=== PATIENT | female | born 1985 | race Caucasian/White ===

== ENCOUNTER 2017-05-14 19:35 | Emergency (ER) | payer SELFPAY ==
[~2017-05-14] VITALS: Ht 152.4 cm; Wt 50.0 kg
[~2017-05-14 19:35] MED LIST: CLIN300C5 PO; HYDR-3533 PO; NAPR500 PO
[2017-05-14 19:37] VITALS: BP 95/66; PULSE 73; RESP 16; TEMP 98.2; O2SAT 99
== END 2017-05-14 22:31 | disposition left against medical advice (07) ==
LOC: NED 19:35
DX: M79.673 Pain in unspecified foot (principal); Z53.21 Procedure and treatment not carried out due to patient leaving prior to being seen by health care provider
CPT/HCPCS: 99281

== ENCOUNTER 2017-05-26 08:33 | Emergency (ER) | payer SELFPAY ==
[~2017-05-26] VITALS: Ht 152.4 cm; Wt 55.0 kg
[2017-05-26 08:35] VITALS: BP 98/63; PULSE 84; RESP 16; TEMP 98.2; O2SAT 98
[2017-05-26] MEDS ORDERED: LAMI250T PO (09:17)
--- NOTE | 2017-05-26 09:29 | PD ---
HPI . Caitie pedis Chief Complaint: Skin Problem Time Seen by Provider: 09:06 Travel History International Travel<30 days: No Contact w/Intl Traveler<30days: No Traveled to known affect area: No History of Present Illness HPI 32-year-old female presents emergency department for evaluation of itchy, raw feet 3 weeks. 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 She states she had used some topical [id number] treatment but she was unable to afford new shoes so she kept recontaminating her feet. She denies any major medical history. Patient doesn't take any daily medication. She denies any drug or alcohol use. Patient denies any fever, chills, malaise, nausea, vomiting, diarrhea, lightheadedness. PFSH Past Medical History Asthma: No Autoimmune Disease: No Blood Disorders: No Bipolar Disorder: Yes Anxiety: Yes Depression: Yes Cancer: No Cardiovascular Problems: No Chemotherapy: No Chest Pain: No Congestive Heart Failure: No COPD: No Cerebrovascular Accident: No Diabetes: No Diminished Hearing: No Endocrine: No Gastrointestinal Disorders: No Genitourinary: Yes Hepatitis: No Hypertension: No Immune Disorder: No Kidney Stones: No Musculoskeletal: No Neurologic: No Psychiatric: Yes Reproductive: No Respiratory: No Immunizations Current: Yes Migraines: No Myocardial Infarction: No Radiation Therapy: No Schizophrenia: Yes Seizures: No Sickle Cell Disease: No Thyroid Disease: No Ulcer: No ?: Not LMP: 05/20/17 : 3 Para: 2 Ectopic : Yes (IN THE FALL 2012) Ovarian Cysts: Yes (2011) Tubal Ligation: Yes Past Surgical History Abdominal Surgery: No AICD: No Appendectomy: No Arteriovenous Shunt: No Cardiac Surgery: No Cholecystectomy: No Endocrine Surgery: No Eye Surgery: No Genitourinary Surgery: No Gynecologic Surgery: Yes (CYSTS ON OVARIES REMOVED ..TUBAL LIGATION) Pacemaker: No Other Surgery: Yes (GROIN CYST REMOVED; D&C) Social History Alcohol Use: No Tobacco Use: Yes (1 ppd) Substance Use: No Allergies-Medications (Allergen,Severity, Reaction): Coded Allergies: codeine (Unverified Allergy, Severe, Hives, 02/14/17) nitrofurantoin (Unverified Allergy, Severe, HIVES, 02/14/17) sulfamethoxazole (Unverified Allergy, Severe, HIVES, 02/14/17) trimethoprim (Unverified Allergy, Severe, HIVES, 02/14/17) ziprasidone (Unverified Allergy, Severe, HIVES, 02/14/17) Reported Meds & Prescriptions Reported Meds & Active Scripts Active Clindamycin (Clindamycin HCl) 300 Mg Cap 300 Mg PO Q6H 10 Days Naprosyn (Naproxen) 500 Mg Tab 500 Mg PO BID PRN Lortab (Hydrocodone-Acetaminophen) 5-325 Mg Tab 1-2 Tab PO Q6H PRN Review of Systems Except as stated in HPI: all other systems reviewed are Neg Physical Exam Narrative GENERAL: Well-nourished, well-developed 32-year-old female patient in no acute distress. [id number]. SKIN: Mildly erythematous between the toes of the feet. HEAD: Normocephalic. Atraumatic. EYES: No scleral icterus. No injection or drainage. NECK: Supple, trachea midline. No JVD or lymphadenopathy. CARDIOVASCULAR: Regular rate and rhythm without murmurs, gallops, or rubs. RESPIRATORY: Breath sounds equal bilaterally. No accessory muscle use. GASTROINTESTINAL: Abdomen soft, non-tender, nondistended. MUSCULOSKELETAL: No cyanosis, or edema. Data Data Last Documented VS Vital Signs Date Time Temp Pulse Resp B/P (MAP) Pulse Ox O2 Delivery O2 Flow Rate FiO2 05/26/17 08:35 98.2 84 16 98/63 (75) 98 MDM Medical Decision Making Medical Screen Exam Complete: Yes Emergency Medical Condition: Yes Differential Diagnosis Differential diagnoses include but not limited to Caitie pedis, cellulitis, dermatitis Narrative Course 32-year-old female patient presents emergency department for evaluation of itchy and irritated 3 weeks. Patient's physical exam is consistent with tinea pedis. Patient denies any drug or alcohol use. Patient discharged home with prescription for Lamisil. Patient instructed to use caution to not recontaminate feet, return the emergency Department with any worsening condition but otherwise follow up with the primary care. Diagnosis Primary Impression: Athlete's foot Qualified Codes: B35.3 - Tinea pedis Referrals: Primary Care Physician Patient Instructions: Athlete's Foot (ED), General Instructions Additional Instructions: Please return to emergency department if your symptoms return or worsen. Follow up with your primary care provider. Take medications as prescribed. Keep feet clean and dry Use precaution to not recontaminate feet. Wash shoes in hot water or purchase new ones. Wash shower. Med/Other Pt SpecificInfo: Prescription(s) given Scripts Terbinafine (Lamisil) 250 Mg Tab 250 MG PO DAILY for Manage Fungal Infection for 42 Days, #42 TAB 0 Refills Prov: Tracey Constantino 05/26/17 Disposition: 01 DISCHARGE HOME Condition: Stable Tracey Constantino May 26, 2017 09:29
== END 2017-05-26 09:35 | disposition home or self-care (01) ==
LOC: NEPD 08:33
DX: B35.3 Tinea pedis (principal); F31.9 Bipolar disorder, unspecified; F41.9 Anxiety disorder, unspecified; F20.9 Schizophrenia, unspecified; F17.200 Nicotine dependence, unspecified, uncomplicated; Z79.899 Other long term (current) drug therapy
CPT/HCPCS: 99282

== ENCOUNTER 2017-06-07 07:22 | Emergency (ER) | payer SELFPAY ==
[~2017-06-07] VITALS: Ht 152.4 cm; Wt 50.0 kg
[~2017-06-07 07:22] MED LIST changes: +LAMI250T PO
[2017-06-07 07:24] VITALS: BP 135/85; PULSE 102; RESP 26; TEMP 98.8; O2SAT 94
[2017-06-07] MEDS ORDERED: SODIUM CHLORIDE 0.9% FLUSH 10 ML FLUSH IVF PRN (07:45)
[2017-06-07] MEDS ORDERED: methylPREDNISolone SOD SUCC 125 MG/2 ML VIAL IV PUSH ONE (07:45)
--- NOTE | 2017-06-07 07:46 | PD ---
HPI Chief Complaint: Chest Pain Time Seen by Provider: 07:42 Travel History International Travel<30 days: No Contact w/Intl Traveler<30days: No Traveled to known affect area: No History of Present Illness HPI 32-year-old female patient with history of smoking, bronchitis, presents to the ER today because of 2 weeks history of cough, cold symptoms, shortness of breath worsening last night. She states that she is now having shooting pains in the right lower chest area. She states she has been having subjective fevers. She denies any vomiting, diarrhea, or other symptoms. Modifying Factors: None Associated Signs & Symptoms: Coughing, shortness of breath, right sided chest pains Risk Factors: Smoking PFSH Past Medical History Asthma: No Autoimmune Disease: No Blood Disorders: No Bipolar Disorder: Yes Anxiety: Yes Depression: Yes Cancer: No Cardiovascular Problems: No Chemotherapy: No Chest Pain: No Congestive Heart Failure: No COPD: No Cerebrovascular Accident: No Diabetes: No Diminished Hearing: No Endocrine: No Gastrointestinal Disorders: No Genitourinary: Yes Hepatitis: No Hypertension: No Immune Disorder: No Kidney Stones: No Musculoskeletal: No Neurologic: No Psychiatric: Yes Reproductive: No Respiratory: No Immunizations Current: Yes Migraines: No Myocardial Infarction: No Radiation Therapy: No Schizophrenia: Yes Seizures: No Sickle Cell Disease: No Thyroid Disease: No Ulcer: No ?: Not : 3 Para: 2 Ectopic : Yes (IN THE FALL 2012) Ovarian Cysts: Yes (2011) Tubal Ligation: Yes Past Surgical History Abdominal Surgery: No AICD: No Appendectomy: No Arteriovenous Shunt: No Cardiac Surgery: No Cholecystectomy: No Endocrine Surgery: No Eye Surgery: No Genitourinary Surgery: No Gynecologic Surgery: Yes (CYSTS ON OVARIES REMOVED ..TUBAL LIGATION) Pacemaker: No Other Surgery: Yes (GROIN CYST REMOVED; D&C) Social History Alcohol Use: No Tobacco Use: Yes (1 ppd) Substance Use: No Allergies-Medications (Allergen,Severity, Reaction): Coded Allergies: codeine (Unverified Allergy, Severe, Hives, 06/07/17) nitrofurantoin (Unverified Allergy, Severe, HIVES, 06/07/17) sulfamethoxazole (Unverified Allergy, Severe, HIVES, 06/07/17) trimethoprim (Unverified Allergy, Severe, HIVES, 06/07/17) ziprasidone (Unverified Allergy, Severe, HIVES, 06/07/17) Reported Meds & Prescriptions Reported Meds & Active Scripts Active Lamisil (Terbinafine) 250 Mg Tab 250 Mg PO DAILY 42 Days Review of Systems Except as stated in HPI: all other systems reviewed are Neg Physical Exam Narrative GENERAL: Well-developed young female patient currently mild distress. Awake and oriented 3. SKIN: Focused skin assessment warm/dry. HEAD: Atraumatic. Normocephalic. EYES: Pupils equal and round. No scleral icterus. No injection or drainage. ENT: No nasal bleeding or discharge. Mucous membranes pink and moist. NECK: Trachea midline. No JVD. CARDIOVASCULAR: Regular rate and rhythm. No murmur appreciated. RESPIRATORY: Mild accessory muscle use. Intermittent wheezing throughout. Breath sounds equal bilaterally. GASTROINTESTINAL: Abdomen soft, non-tender, nondistended. Hepatic and splenic margins not palpable. MUSCULOSKELETAL: No obvious deformities. No clubbing. No cyanosis. No edema. NEUROLOGICAL: Awake and alert. No obvious cranial nerve deficits. Motor grossly within normal limits. Normal speech. PSYCHIATRIC: Appropriate mood and affect; insight and judgment normal. Data Data Last Documented VS Vital Signs Date Time Temp Pulse Resp B/P (MAP) Pulse Ox O2 Delivery O2 Flow Rate FiO2 06/07/17 07:54 77 98 Room Air 06/07/17 07:24 98.8 26 Orders Orders Electrocardiogram (06/07/17 07:31) Iv Access Insert/Monitor (06/07/17 07:42) Ecg Monitoring (06/07/17 07:42) Oximetry (06/07/17 07:42) Oxygen Administration (06/07/17 07:42) Chest, Single Ap (06/07/17 07:42) Sodium Chloride 0.9% Flush (Ns Flush) (06/07/17 07:45) Methylprednisolone So Succ Inj (Solumedr (06/07/17 07:45) Albuterol-Ipratropium Neb (Duoneb Neb) (06/07/17 07:45) Azithromycin Inj (Zithromax Inj) (06/07/17 08:30) Blood Culture (06/07/17 08:22) Complete Blood Count With Diff (06/07/17 08:22) Basic Metabolic Panel (Bmp) (06/07/17 08:22) Ondansetron Inj (Zofran Inj) (06/07/17 09:10) Ed Discharge Order (06/07/17 09:24) Labs Laboratory Tests Test 06/07/17 08:35 White Blood Count 15.0 TH/MM3 Red Blood Count 4.64 MIL/MM3 Hemoglobin 14.8 GM/DL Hematocrit 43.5 % Mean Corpuscular Volume 93.8 FL Mean Corpuscular Hemoglobin 31.9 PG Mean Corpuscular Hemoglobin Concent 34.0 % Red Cell Distribution Width 13.5 % Platelet Count 202 TH/MM3 Mean Platelet Volume 9.9 FL Neutrophils (%) (Auto) 75.9 % Lymphocytes (%) (Auto) 15.9 % Monocytes (%) (Auto) 7.1 % Eosinophils (%) (Auto) 0.6 % Basophils (%) (Auto) 0.5 % Neutrophils # (Auto) 11.4 TH/MM3 Lymphocytes # (Auto) 2.4 TH/MM3 Monocytes # (Auto) 1.1 TH/MM3 Eosinophils # (Auto) 0.1 TH/MM3 Basophils # (Auto) 0.1 TH/MM3 CBC Comment DIFF FINAL Differential Comment Blood Urea Nitrogen 5 MG/DL Creatinine 0.78 MG/DL Random Glucose 99 MG/DL Calcium Level 8.9 MG/DL Sodium Level 137 MEQ/L Potassium Level 3.7 MEQ/L Chloride Level 103 MEQ/L Carbon Dioxide Level 27.3 MEQ/L Anion Gap 7 MEQ/L Estimat Glomerular Filtration Rate 86 ML/MIN MDM Medical Decision Making Medical Screen Exam Complete: Yes Emergency Medical Condition: Yes Medical Record Reviewed: Yes Interpretation(s) EKG shows NSR, no ST elevation or depression, and no arrhythmias. No significant T-wave inversions. Last 24 hours Impressions Chest X-Ray 06/07/17 0742 Signed Impressions: Service Date/Time: Wednesday, June 07, 2017 08:00 - CONCLUSION: 1. Ill-defined right lower lung zone parenchymal opacity concerning for developing pneumonia given history of cough.. Puma Cervantes MD Laboratory Tests Test 06/07/17 08:35 White Blood Count 15.0 TH/MM3 (4.0-11.0) Neutrophils (%) (Auto) 75.9 % (16.0-70.0) Neutrophils # (Auto) 11.4 TH/MM3 (1.8-7.7) Monocytes # (Auto) 1.1 TH/MM3 (0-0.9) Blood Urea Nitrogen 5 MG/DL (7-18) Estimat Glomerular Filtration Rate 86 ML/MIN (>89) Differential Diagnosis Cough, shortness of breath, chest discomfort: Bronchitis versus asthma exacerbation versus pneumonia Narrative Course Right sided developing pneumonia seen on chest x-ray. Patient was given Solu- Medrol and nebulizers in the ER with improvement symptoms and oxygenation. Zithromax was given in the ER after blood cultures were drawn. At this point, my plan would be to release the patient with treatment for pneumonia. Follow- up with primary care physician. Return for any worsening in symptoms as needed. The plan has discussed with her and she states understanding. Diagnosis Primary Impression: Pneumonia Med/Other Pt SpecificInfo: Prescription(s) given Scripts Albuterol 6.7 GM Inh (Proventil Hfa 6.7 GM Inh) 90 Mcg/Act Aer 2 PUFF INH Q4-6H Y for SHORTNESS OF BREATH, #1 INHALER 0 Refills Prov: Roger Landry MD 06/07/17 Prednisone (Prednisone) 50 Mg Tab 50 MG PO DAILY for 3 Days, #3 TAB 0 Refills Prov: Roger Landry MD 06/07/17 Azithromycin (Zithromax Z-Magdi) 250 Mg Dspk 250 MG PO DIRECTED for Infection, #1 DSPK 0 Refills 500 MG (2 tabs) day 1, then 1 tab days 2-5. Prov: Roger Landry MD 06/07/17 Disposition: 01 DISCHARGE HOME Condition: Stable Roger Landry MD Jun 07, 2017 07:46
[2017-06-07 07:54] VITALS: PULSE 77; O2SAT 98
[2017-06-07] MEDS: RESP: ALBUTEROL 2.5 MG/IPRATROPIUM 0.5 MG NEB (SCH) INH ×2 (08:04→08:05)
--- NOTE | 2017-06-07 08:12 | RADRPT ---
EXAM DATE/TIME: 06/07/2017 08:00 [facility] COMPARISON: CHEST SINGLE AP, April 04, 2014, 14:39. INDICATIONS : Cough. MEDICAL HISTORY : None. SURGICAL HISTORY : None. ENCOUNTER: Initial ACUITY: 3 weeks PAIN SCORE: 0/10 LOCATION: Bilateral chest FINDINGS: Ill-defined parenchymal opacity in the right lower lung zone. Cardiomediastinal contours are within n ormal limits. Bony thorax is intact. CONCLUSION: 1. Ill-defined right lower lung zone parenchymal opacity concerning for developing pneumonia given hi story of cough.. Puma Cervantes MD on June 07, 2017 at 8:09 Board Certified Radiologist. This report was verified electronically.
[2017-06-07] MEDS ORDERED: AZITHROMYCIN INJ 500 MG in SODIUM CHLOR 0.9% 250 ML INJ 250 ML IV ONE (08:30)
[2017-06-07 09:08] LABS: AUTOMATED NEUTROPHIL # 11.4 TH/MM3 (1.8-7.7); BASOPHIL # 0.1 TH/MM3 (0-0.2); BASOPHIL % 0.5 % (0.0-2.0); EOSINOPHIL # 0.1 TH/MM3 (0-0.4); EOSINOPHIL % 0.6 % (0.0-4.0); HEMATOCRIT 43.5 % (35.0-46.0); HEMO FLAGS DIFF FINAL; LYMPH % 15.9 % (9.0-44.0); LYMPHOCYTE # 2.4 TH/MM3 (1.0-4.8); MEAN CELL VOLUME 93.8 FL (80.0-100.0); MEAN CORPUSCULAR HEMOGLOBIN 31.9 PG (27.0-34.0); MONO % 7.1 % (0.0-8.0); NEUT % 75.9 % (16.0-70.0); PLATELET COUNT 202 TH/MM3 (150-450); RED BLOOD COUNT 4.64 MIL/MM3 (4.00-5.30); RED CELL DISTRIBUTION WIDTH 13.5 % (11.6-17.2)
[2017-06-07] MEDS ORDERED: ONDANSETRON HCL 4 MG/2 ML VIAL ONE (09:10)
[2017-06-07 09:21] LABS: BICARBONATE 27.3 MEQ/L (21.0-32.0); POTASSIUM 3.7 MEQ/L (3.5-5.1)
[2017-06-07] MEDS ORDERED: ALBU6.7H INH (09:26)
[2017-06-07] MEDS ORDERED: PRED50 PO (09:26)
[2017-06-07] MEDS ORDERED: ZITHTAB PO (09:26)
[2017-06-07] MEDS ORDERED: ONDANSETRON HCL 4 MG/2 ML VIAL IV PUSH ONE (09:30)
--- NOTE | 2017-06-08 10:33 | EKG ---
Date Performed: 06/07/2017 Time Performed: 07:37:51 PTAGE: 32 years EKG: Sinus rhythm NORMAL ECG PREVIOUS TRACING : 04/04/2014 13.15 Compared to prior tracing no significant change DOCTOR: Yamilex Mclaughlin Interpretating Date/Time 06/08/2017 10:32:26
== END 2017-06-07 11:09 | disposition home or self-care (01) ==
LOC: NEPE 07:22
DX: J18.9 Pneumonia, unspecified organism (principal); F17.200 Nicotine dependence, unspecified, uncomplicated; R06.02 Shortness of breath
CPT/HCPCS: 71010; 80048; 85025; 87040; 93005; 94640; 94664; 96361; 96374; 96375; 99285; J0456; J2405; J2930; J7050

== ENCOUNTER 2017-07-31 21:17 | Emergency (ER) | payer SELFPAY ==
[~2017-07-31] VITALS: Ht 152.4 cm; Wt 50.0 kg
[~2017-07-31 21:17] MED LIST changes: +ALBU6.7H INH; -CLIN300C5 PO; -HYDR-3533 PO; -NAPR500 PO; +PRED50 PO; +ZITHTAB PO
[2017-07-31 21:18] VITALS: BP 119/77; PULSE 100; RESP 16; TEMP 98.4; O2SAT 100
--- NOTE | 2017-07-31 22:09 | PD ---
Physical Exam Date Seen by Provider: Jul 31, 2017 Time Seen by Provider: 21:32 Narrative 32-year-old female presents to the emergency department for evaluation of sore throat, left ear pain that started yesterday. Current pain is 6/10. Data Data Last Documented VS Vital Signs Date Time Temp Pulse Resp B/P (MAP) Pulse Ox O2 Delivery O2 Flow Rate FiO2 07/31/17 21:18 98.4 100 16 119/77 (91) [address] [facility] Supervised Visit with KIYA: No Narrative Course 32-year-old female presents to the emergency department for evaluation of sore throat left ear pain that started yesterday. Patient is initially seen in triage. She left AGAINST MEDICAL ADVICE before should be placed in a medical bed. Diagnosis Primary Impression: Left against medical advice Disposition: 07 AGAINST MEDICAL ADVICE Bing Willoughby Jul 31, 2017 22:09
== END 2017-07-31 21:32 | disposition left against medical advice (07) ==
LOC: NED 21:17
DX: J02.9 Acute pharyngitis, unspecified (principal); Z53.21 Procedure and treatment not carried out due to patient leaving prior to being seen by health care provider
CPT/HCPCS: 99281

== ENCOUNTER 2017-08-01 06:02 | Inpatient (IN) | payer SELFPAY ==
[~2017-08-01] VITALS: Ht 157.5 cm; Wt 50.0 kg
[2017-08-01 06:03] VITALS: BP 110/65; PULSE 95; RESP 16; TEMP 98.6; O2SAT 95
[2017-08-01] MEDS ORDERED: IOHEXOL 350 MG/ML 10 ML VIAL (for RAD DIAG) IVCONTRAST ONE (06:03)
[2017-08-01] MEDS ORDERED: ONDANSETRON HCL 4 MG/2 ML VIAL IV PUSH ONE (07:15)
[2017-08-01] MEDS ORDERED: SODIUM CHLOR 0.9% 1000 ML INJ 1,000 ML IV ONE (07:15)
[2017-08-01] MEDS ORDERED: DEXAMETHASONE SOD PHOS 20 MG/5 ML VIAL IV PUSH ONE (07:15)
[2017-08-01] MEDS ORDERED: KETOROLAC TROMETHAMINE 30 MG/ML (IVP) VIAL IV PUSH ONE (07:15)
--- NOTE | 2017-08-01 07:16 | PD ---
HPI Chief Complaint: ENT Complaint Time Seen by Provider: 07:03 Travel History International Travel<30 days: No Contact w/Intl Traveler<30days: No Traveled to known affect area: No History of Present Illness HPI Patient is a 32-year-old female who comes in complaining of sore throat, vomiting, cough for 2 days. She reports feeling feverish, but has not taken her temperature. She has tried taking DayQuil without relief of her symptoms. She denies abdominal pain. She denies any diarrhea. She denies shortness of breath. She has a lot of pain with swallowing, but is able to swallow. She says the pain goes from her throat up to her left ear. PFSH Past Medical History Asthma: No Autoimmune Disease: No Blood Disorders: No Bipolar Disorder: Yes Anxiety: Yes Depression: Yes Cancer: No Cardiovascular Problems: No Chemotherapy: No Chest Pain: No Congestive Heart Failure: No COPD: No Cerebrovascular Accident: No Diabetes: No Diminished Hearing: No Endocrine: No Gastrointestinal Disorders: No Genitourinary: Yes Hepatitis: No Hypertension: No Immune Disorder: No Kidney Stones: No Musculoskeletal: No Neurologic: No Psychiatric: Yes Reproductive: No Respiratory: No Immunizations Current: Yes Migraines: No Myocardial Infarction: No Radiation Therapy: No Schizophrenia: Yes Seizures: No Sickle Cell Disease: No Thyroid Disease: No Ulcer: No Tetanus Vaccination: Unknown Influenza Vaccination: No ?: Not : 3 Para: 2 Ectopic : Yes (IN THE FALL 2012) Ovarian Cysts: Yes (2011) Tubal Ligation: Yes Past Surgical History Abdominal Surgery: No AICD: No Appendectomy: No Arteriovenous Shunt: No Cardiac Surgery: No Cholecystectomy: No Endocrine Surgery: No Eye Surgery: No Genitourinary Surgery: No Gynecologic Surgery: Yes (CYSTS ON OVARIES REMOVED ..TUBAL LIGATION) Pacemaker: No Other Surgery: Yes (GROIN CYST REMOVED; D&C) Social History Alcohol Use: No Tobacco Use: Yes (1 ppd) Substance Use: No Allergies-Medications (Allergen,Severity, Reaction): Coded Allergies: codeine (Unverified Allergy, Severe, Hives, 08/01/17) nitrofurantoin (Unverified Allergy, Severe, HIVES, 08/01/17) sulfamethoxazole (Unverified Allergy, Severe, HIVES, 08/01/17) trimethoprim (Unverified Allergy, Severe, HIVES, 08/01/17) ziprasidone (Unverified Allergy, Severe, HIVES, 08/01/17) Reported Meds & Prescriptions Reported Meds & Active Scripts Active No Active Prescriptions or Reported Medications Review of Systems Except as stated in HPI: all other systems reviewed are Neg General / Constitutional: Positive: Fever HENT: Positive: Sore Throat, No: Headaches Cardiovascular: No: Chest Pain or Discomfort Respiratory: Positive: Cough, No: Shortness of Breath Gastrointestinal: Positive: Nausea, Vomiting, No: Abdominal Pain Musculoskeletal: No: Myalgias, Edema Skin: No Rash, No Change in Pigmentation Neurologic: No: Weakness, Dizziness Physical Exam Narrative GENERAL: Awake and alert, in no acute distress. SKIN: Focused skin assessment warm/dry. HEAD: Atraumatic. Normocephalic. EYES: Pupils equal and round. No scleral icterus. ENT: Mucous membranes pink and moist. Enlarged left tonsil, swelling concerning for peritonsillar abscess. NECK: Trachea midline. No JVD. CARDIOVASCULAR: Regular rate and rhythm. No murmur appreciated. RESPIRATORY: No accessory muscle use. Clear to auscultation. Breath sounds equal bilaterally. GASTROINTESTINAL: Abdomen soft, non-tender, nondistended. MUSCULOSKELETAL: No obvious deformities. No clubbing. No cyanosis. No edema. NEUROLOGICAL: Awake and alert. No obvious cranial nerve deficits. Motor grossly within normal limits. Normal speech. PSYCHIATRIC: Appropriate mood and affect; insight and judgment normal. Data Data Last Documented VS Vital Signs Date Time Temp Pulse Resp B/P (MAP) Pulse Ox O2 Delivery O2 Flow Rate FiO2 08/01/17 06:03 98.6 95 16 110/65 (80) 95 Orders Orders Iv Access Insert/Monitor (08/01/17 07:09) Complete Blood Count With Diff (08/01/17 07:09) Comprehensive Metabolic Panel (08/01/17 07:09) Ct Soft Tiss Neck W Iv Cont (08/01/17 ) Sodium Chlor 0.9% 1000 Ml Inj (Ns 1000 M (08/01/17 07:15) Ketorolac Inj (Toradol Inj) (08/01/17 07:15) Dexamethasone Inj (Decadron Inj) (08/01/17 07:15) Ondansetron Inj (Zofran Inj) (08/01/17 07:15) Iohexol 350 Inj (Omnipaque 350 Inj) (08/01/17 06:03) Clindamycin 600 Mg/Ns Premix (Cleocin 60 (08/01/17 08:30) Labs Laboratory Tests Test 08/01/17 07:37 White Blood Count 20.1 TH/MM3 Red Blood Count 4.42 MIL/MM3 Hemoglobin 14.2 GM/DL Hematocrit 40.5 % Mean Corpuscular Volume 91.7 FL Mean Corpuscular Hemoglobin 32.2 PG Mean Corpuscular Hemoglobin Concent 35.1 % Red Cell Distribution Width 13.7 % Platelet Count 177 TH/MM3 Mean Platelet Volume 9.1 FL Neutrophils (%) (Auto) 86.7 % Lymphocytes (%) (Auto) 7.4 % Monocytes (%) (Auto) 5.5 % Eosinophils (%) (Auto) 0.1 % Basophils (%) (Auto) 0.3 % Neutrophils # (Auto) 17.4 TH/MM3 Lymphocytes # (Auto) 1.5 TH/MM3 Monocytes # (Auto) 1.1 TH/MM3 Eosinophils # (Auto) 0.0 TH/MM3 Basophils # (Auto) 0.1 TH/MM3 CBC Comment DIFF FINAL Differential Comment Blood Urea Nitrogen 7 MG/DL Creatinine 0.73 MG/DL Random Glucose 105 MG/DL Total Protein 8.1 GM/DL Albumin 4.0 GM/DL Calcium Level 8.9 MG/DL Alkaline Phosphatase 82 U/L Aspartate Amino Transf (AST/SGOT) 14 U/L Alanine Aminotransferase (ALT/SGPT) 13 U/L Total Bilirubin 1.1 MG/DL Sodium Level 137 MEQ/L Potassium Level 3.4 MEQ/L Chloride Level 104 MEQ/L Carbon Dioxide Level 27.2 MEQ/L Anion Gap 6 MEQ/L Estimat Glomerular Filtration Rate 93 ML/MIN [facility] Medical Decision Making Medical Screen Exam Complete: Yes Emergency Medical Condition: Yes Medical Record Reviewed: Yes Differential Diagnosis strep pharyngitis vs peritonsillar abscess vs viral illness Narrative Course Patient is a 32 year old female who comes in complaining of sore throat, fever, nausea and vomiting. Exam concerning for tonsillar abscess. IV established, labs sent. Labs show an elevated WBC count to 20. CT neck performed shows evidence of 3 abscesses. Last [address] 08/01/17 0000 Signed Impressions: Service Date/Time: Tuesday, August 01, 2017 07:42 - CONCLUSION: Left tonsillar rim-enhancing mass with low density consistent with abscess in the proper clinical setting. There are additional similar but smaller submucosal masses more inferiorly at the level of the vallecula and piriform sinus. No retropharyngeal abscess demonstrated. There is left cervical lymphadenopathy, presumably reactive. Ronald Dickey MD Given IVF, Toradol, Decadron. Given a dose of Clindamycin. I spoke with the nurse from Dr. Naylor's office who says he will see her in consultation after admission. Diagnosis Primary Impression: Tonsillar abscess Admitting Information Admitting Physician Requests: Admit Scripts No Active Prescriptions or Reported Meds Tracey Hutchins MD Aug 01, 2017 07:16
[2017-08-01 07:51] LABS: AUTOMATED NEUTROPHIL # 17.4 TH/MM3 (1.8-7.7); BASOPHIL # 0.1 TH/MM3 (0-0.2); BASOPHIL % 0.3 % (0.0-2.0); EOSINOPHIL % 0.1 % (0.0-4.0); HEMATOCRIT 40.5 % (35.0-46.0); HEMOGLOBIN 14.2 GM/DL (11.6-15.3); LYMPH % 7.4 % (9.0-44.0); LYMPHOCYTE # 1.5 TH/MM3 (1.0-4.8); MEAN CELL VOLUME 91.7 FL (80.0-100.0); MEAN CORPUSCULAR HEMOGLOBIN 32.2 PG (27.0-34.0); MEAN CORPUSCULAR HGB CONC 35.1 % (32.0-36.0); MEAN PLATELET VOLUME 9.1 FL (7.0-11.0); MONO % 5.5 % (0.0-8.0); MONOCYTE # 1.1 TH/MM3 (0-0.9); NEUT % 86.7 % (16.0-70.0); PLATELET COUNT 177 TH/MM3 (150-450); RED BLOOD COUNT 4.42 MIL/MM3 (4.00-5.30); RED CELL DISTRIBUTION WIDTH 13.7 % (11.6-17.2); WHITE BLOOD COUNT 20.1 TH/MM3 (4.0-11.0)
[2017-08-01 08:00] LABS: AST (GOT) 14 U/L (15-37); BICARBONATE 27.2 MEQ/L (21.0-32.0); BLOOD UREA NITROGEN 7 MG/DL (7-18); CALCIUM 8.9 MG/DL (8.5-10.1); CHLORIDE 104 MEQ/L (98-107); CREATININE 0.73 MG/DL (0.50-1.00); GLOMERULAR FILTRATION RATE 93 ML/MIN (>89); GLUCOSE,RANDOM 105 MG/DL (74-106); SODIUM (NA) 137 MEQ/L (136-145)
[2017-08-01 08:01] LABS: ALT (GPT) 13 U/L (10-53)
[2017-08-01 08:03] LABS: ALKALINE PHOSPHATASE 82 U/L (45-117); TOTAL BILIRUBIN ADULT 1.1 MG/DL (0.2-1.0); TOTAL PROTEIN 8.1 GM/DL (6.4-8.2)
--- NOTE | 2017-08-01 08:08 | RADRPT ---
EXAM DATE/TIME: 08/01/2017 07:42 [facility] COMPARISON: No previous studies available for comparison. INDICATIONS : Sore throat and left ear pain, vomiting, cough for 2 days IV CONTRAST: 70 cc Omnipaque 350 (iohexol) IV RADIATION DOSE: 10.33 CTDIvol (mGy) MEDICAL HISTORY : None SURGICAL HISTORY : Tubal ligation. ENCOUNTER: Initial ACUITY: 2 days PAIN SCALE: 5/10 LOCATION: Left throat TECHNIQUE: Volumetric scanning of the neck was performed. Using automated exposure control and adjustment of th e mA and/or kV according to patient size, radiation dose was kept as low as reasonably achievable to obtain optimal diagnostic quality images. DICOM format image data is available electronically for r eview and comparison. FINDINGS: NASOPHARYNX: The nasopharyngeal airway has a normal configuration. No mucosal thickening or mass is seen. OROPHARYNX/pharynx: There is a rim-enhancing mass with central low density in the region of the left tongue base/tonsil. It measures approximately 1.7 x 2.2 cm in greatest transaxial dimension. A smaller and less defined c omponent is seen just below it at the level of the vallecula, measures 12 x 16 mm and with superficia l margin just beneath the mucosa. An additional component is seen at the level of the piriform sinus and measures 7 x 10 mm. LARYNX: The supraglottic, glottic, and infraglottic structures are intact. SALIVARY GLANDS: The parotid and submandibular glands are intact. LYMPH NODES: There are left jugular digastric lymph nodes measure up to 11 x 17 mm in size. These are asymmetric r elative to the right which are all subcentimeter. THYROID: Homogeneous enhancement without evidence of nodule. BONES: Unremarkable. CONCLUSION: Left tonsillar rim-enhancing mass with low density consistent with abscess in the proper clinical set ting. There are additional similar but smaller submucosal masses more inferiorly at the level of the vallecula and piriform sinus. No retropharyngeal abscess demonstrated. There is left cervical lymphad enopathy, presumably reactive. Ronald Dickey MD on August 01, 2017 at 7:57 Board Certified Radiologist. This report was verified electronically.
[2017-08-01] MEDS ORDERED: CLINDAMYCIN 600 MG/NS PREMIX 50 ML IV ONE (08:30)
[2017-08-01] MEDS: SODIUM CHLOR 0.9% 1000 ML INJ 1,000 ML IV SCH ×2 (09:06→22:12)
[2017-08-01] MEDS ORDERED: LACTULOSE SYRUP 20 GM/30 ML CUP PO PRN (09:15)
[2017-08-01] MEDS ORDERED: MAGNESIUM HYDROXIDE SUSP 30 ML CUP PO PRN (09:15)
[2017-08-01] MEDS ORDERED: NALOXONE HCL 0.4 MG/ML AMP IV PUSH PRN (09:15)
[2017-08-01] MEDS ORDERED: BISACODYL 10 MG SUPP RECTAL PRN (09:15)
[2017-08-01] MEDS ORDERED: ONDANSETRON HCL 4 MG/2 ML VIAL IVP PRN (09:15)
[2017-08-01] MEDS ORDERED: ACETAMINOPHEN 325 MG TAB PO PRN ×2 (09:15)
[2017-08-01] MEDS ORDERED: SODIUM CHLORIDE 0.9% FLUSH 10 ML FLUSH IV FLUSH PRN (09:15)
[2017-08-01] MEDS ORDERED: KETOROLAC TROMETHAMINE 30 MG/ML (IVP) VIAL IV PUSH PRN (09:15)
[2017-08-01] MEDS ORDERED: SENNOSIDES 8.6 MG TAB PO PRN (09:15)
[2017-08-01 10:55] VITALS: BP 103/77; PULSE 88; RESP 18; O2SAT 97
[2017-08-01] MEDS ORDERED: PHENOL 1.4% SOLN 180 ML BTL MT PRN (12:30)
[2017-08-01 12:33] VITALS: BP 97/53; PULSE 68; RESP 18; O2SAT 96
[2017-08-01] MEDS: CLINDAMYCIN 600 MG/NS PREMIX 50 ML IV SCH ×2 (15:33→21:57)
[2017-08-01] MEDS: DEXAMETHASONE SOD PHOS 4 MG/ML VIAL IV PUSH SCH ×2 (16:27→23:23)
[2017-08-01] MEDS ORDERED: NICOTINE 21 MG/24 HR PATCH T-DERMAL ONE (16:45)
--- NOTE | 2017-08-01 17:46 | HHI.HP ---
[facility] No Primary Care Physician Admission Diagnosis multiple tonsilar/neck abscesses Diagnoses: (1) Sepsis (2) Tonsillar abscess (3) Lymphangitis Chief Complaint: sore Throat Travel History International Travel<30 Days: No Contact w/Intl Traveler <30 Da: No Traveled to Known Affected Are: No Sepsis Criteria SIRS Criteria (2 or more): Heart rate over 90, WBC > 18742, < 4000 or > 10% bands Sepsis Criteria (SIRS+source): Infect source susp/known History of Present Illness 32-year-old female with past medical history of anxiety, depression, schizophrenia and a former history of IV drug use presented to the ED for evaluation of sore throat and pain along with swollen throat associated with left ear pain over the past 3 days. Pain is rated 8/10 in intensity. Patient also reported subjective fever. she also endorsed decreased appetite. She complains of trismus and she states despite Chloraseptic spray as well as DayQuil has no improvement of her pain. Patient also reported emesis and dysphagia of both liquid and solid along with odynophagia. Admission, patient was afebrile with a heart rate of 100. Neck CT scan with finding of left tonsil ring-enhancing mass with low density consistent with abscess however no retropharyngeal abscess identified. Abnormal labs include WBC of 20.1. She denies any GI bleed, shortness of breath or chest pain. Review of Systems Except as stated in HPI: all other systems reviewed are Neg Past Family Social History Past Medical History Depression Anxiety Schizophrenia Previous history of IV drug use Past Surgical History CYSTS ON OVARIES REMOVED ..TUBAL LIGATION) GROIN CYST REMOVED; D&C Reported Medications Not currently on any medication Allergies: Coded Allergies: codeine (Unverified Allergy, Severe, Hives, 08/01/17) nitrofurantoin (Unverified Allergy, Severe, HIVES, 08/01/17) sulfamethoxazole (Unverified Allergy, Severe, HIVES, 08/01/17) trimethoprim (Unverified Allergy, Severe, HIVES, 08/01/17) ziprasidone (Unverified Allergy, Severe, HIVES, 08/01/17) Family History Mother has hypertension Maternal grandmother has diabetes, brain cancer Social History Alcohol Use: No Tobacco Use: Yes (1 ppd) Substance Use: No Physical Exam Vital Signs Vital Signs Date Time Temp Pulse Resp B/P (MAP) Pulse Ox O2 Delivery O2 Flow Rate FiO2 08/01/17 12:33 68 18 97/53 (68) 96 Room Air 08/01/17 10:55 88 18 103/77 (86) 97 Room Air 08/01/17 06:03 98.6 95 16 110/65 (80) 95 Physical Exam GENERAL: This is a well-nourished, well-developed patient, in no apparent distress. SKIN: No rashes, ecchymoses or lesions. Cool and dry. HEAD: Atraumatic. Normocephalic. No temporal or scalp tenderness. EYES: Pupils equal round and reactive. Extraocular motions intact. No scleral icterus. No injection or drainage. ENT: Nose without bleeding, purulent drainage or septal hematoma. Throat with erythema, tonsillar hypertrophy or exudate. Uvula midline. Airway patent. NECK: Trachea midline. + lymphadenopathy. Supple, +tender, no meningeal signs. CARDIOVASCULAR: Regular rate and rhythm with II/ RESPIRATORY: Clear to auscultation. Breath sounds equal bilaterally. No wheezes , rales, or rhonchi. GASTROINTESTINAL: Abdomen soft, non-tender, nondistended. No hepato-splenomegaly , or palpable masses. No guarding. MUSCULOSKELETAL: Extremities without clubbing, cyanosis, or edema. No joint tenderness, effusion, or edema noted. No calf tenderness. Negative Homans sign bilaterally. NEUROLOGICAL: Awake and alert. Cranial nerves II through XII intact. Motor and sensory grossly within normal limits. Five out of 5 muscle strength in all muscle groups. Normal speech. Laboratory Laboratory Tests Test 08/01/17 07:37 White Blood Count 20.1 Red Blood Count 4.42 Hemoglobin 14.2 Hematocrit 40.5 Mean Corpuscular Volume 91.7 Mean Corpuscular Hemoglobin 32.2 Mean Corpuscular Hemoglobin Concent 35.1 Red Cell Distribution Width 13.7 Platelet Count 177 Mean Platelet Volume 9.1 Neutrophils (%) (Auto) 86.7 Lymphocytes (%) (Auto) 7.4 Monocytes (%) (Auto) 5.5 Eosinophils (%) (Auto) 0.1 Basophils (%) (Auto) 0.3 Neutrophils # (Auto) 17.4 Lymphocytes # (Auto) 1.5 Monocytes # (Auto) 1.1 Eosinophils # (Auto) 0.0 Basophils # (Auto) 0.1 CBC Comment DIFF FINAL Differential Comment Blood Urea Nitrogen 7 Creatinine 0.73 Random Glucose 105 Total Protein 8.1 Albumin 4.0 Calcium Level 8.9 Alkaline Phosphatase 82 Aspartate Amino Transf (AST/SGOT) 14 Alanine Aminotransferase (ALT/SGPT) 13 Total Bilirubin 1.1 Sodium Level 137 Potassium Level 3.4 Chloride Level 104 Carbon Dioxide Level 27.2 Anion Gap 6 Estimat Glomerular Filtration Rate 93 Result Diagram: 08/01/17 0737 08/01/17 0737 Imaging Last Impressions Neck CT 08/01/17 0000 Signed Impressions: Service Date/Time: Tuesday, August 01, 2017 07:42 - CONCLUSION: Left tonsillar rim-enhancing mass with low density consistent with abscess in the proper clinical setting. There are additional similar but smaller submucosal masses more inferiorly at the level of the vallecula and piriform sinus. No retropharyngeal abscess demonstrated. There is left cervical lymphadenopathy, presumably reactive. Ronald Dickey MD Septic Shock Reassessment Septic shock perfusion: reassessment completed Caprini VTE Risk Assessment Caprini VTE Risk Assessment: No/Low Risk (score <= 1) Caprini Risk Assessment Model Point Value = 1 Point Value = 2 Point Value = 3 Point Value = 5 Age 41-60 Minor surgery BMI > 25 kg/m2 Swollen legs Varicose veins or History of unexplained or recurrent spontaneous Oral contraceptives or hormone replacement Sepsis (< 1 month) Serious lung disease, including pneumonia (< 1 month) Abnormal pulmonary function Acute myocardial infarction Congestive heart failure (< 1 month) History of inflammatory bowel disease Medical patient at bed rest Age 61-74 Arthroscopic surgery Major open surgery (> 45 min) Laparoscopic surgery (> 45 min) Malignancy Confined to bed (> 72 hours) Immobilizing plaster cast Central venous access Age >= 75 History of VTE Family history of VTE Factor V Leiden Prothrombin [id number] Lupus anticoagulant Anticardiolipin antibodies Elevated serum homocysteine Heparin-induced thrombocytopenia Other congenital or acquired thrombophilia Stroke (< 1 month) Elective arthroplasty Hip, pelvis, or leg fracture Acute spinal cord injury (< 1 month) Prophylaxis Regimen Total Risk Factor Score Risk Level Prophylaxis Regimen 0-1 Low Early ambulation 2 Moderate Order ONE of the following: *Sequential Compression Device (SCD) *Heparin 5000 units SQ BID 3-4 Higher Order ONE of the following medications: *Heparin 5000 units SQ TID *Enoxaparin/Lovenox 40 mg SQ daily (WT < 150 kg, CrCl > 30 mL/min) *Enoxaparin/Lovenox 30 mg SQ daily (WT < 150 kg, CrCl > 10-29 mL/min) *Enoxaparin/Lovenox 30 mg SQ BID (WT < 150 kg, CrCl > 30 mL/min) AND/OR *Sequential Compression Device (SCD) 5 or more Highest Order ONE of the following medications: *Heparin 5000 units SQ TID (Preferred with Epidurals) *Enoxaparin/Lovenox 40 mg SQ daily (WT < 150 kg, CrCl > 30 mL/min) *Enoxaparin/Lovenox 30 mg SQ daily (WT < 150 kg, CrCl > 10-29 mL/min) *Enoxaparin/Lovenox 30 mg SQ BID (WT < 150 kg, CrCl > 30 mL/min) AND *Sequential Compression Device (SCD) Assessment and Plan Problem List: (1) Sepsis ICD Code: A41.9 - Sepsis, unspecified organism (2) Tonsillar abscess ICD Code: J36 - Peritonsillar abscess Status: Acute Assessment and Plan 32-year-old female with Sepsis: Heart rate over 90, WBC > 44304, < 4000 or > 10% bands; Infect source susp/known (tonsillar abscess); check lactic acid monitor culture Status post clindamycin 600 mg IV 1 in ED, Continue with Clindamycin IV every 6 hours Left Tonsillar abscess Neck CT noted and review by me with finding of left tonsil ring-enhancing mass with low density consistent with abscess. No retropharyngeal abscess demonstrated. Currently on clindamycin 600 mg IV every 6 hours Continue with Decadron IV 4 mg daily every 8 hour and start Peridex Pain management accordingly ENT consultation pending for evaluation for possible I&D Leukocytosis From above infectious process, monitor and treat as in above Heart murmur in a patient with previous history of IVDU Check 2-D echo in light of current diagnosis of sepsis and tonsillar abscess Check UDS Tobacco abuse Tobacco counseling cessation provided Start nicotine patch Hypokalemia Replace electrolyte and monitor DVT prophylaxis: Bilateral SCDs Code Status Full code Discussed Condition With Patient, ED physician Physician Certification 2 Midnight Certification Type: Admission for Inpatient Services Order for Inpatient Services The services are ordered in accordance with Medicare regulations or non- Medicare payer requirements, as applicable. In the case of services not specified as inpatient-only, they are appropriately provided as inpatient services in accordance with the 2-midnight benchmark. Estimated LOS (days): 2 days is the estimated time the patient will need to remain in the hospital, assuming treatment plan goals are met and no additional complications. Post-Hospital Plan: Not yet determined Ben Montes MD Aug 01, 2017 17:46
[2017-08-01 18:00] VITALS: BP 116/64; PULSE 83; RESP 18; TEMP 98.1; O2SAT 98
[2017-08-01] MEDS ORDERED: POTASSIUM CHLORIDE 25 MEQ EFFERVESCENT TAB PO ONE (18:00)
[2017-08-01 20:00] VITALS: BP 108/68; PULSE 75; RESP 18; TEMP 97.9; O2SAT 98
[2017-08-01] MEDS: LACTOBACILLUS ACIDOPHILUS TAB PO SCH (21:00)
[2017-08-01] MEDS: DOCUSATE SODIUM 50 MG/SENNA 8.6 MG TAB PO SCH (21:00)
[2017-08-01] MEDS: SODIUM CHLORIDE 0.9% FLUSH 10 ML FLUSH IV FLUSH SCH (21:57)
[2017-08-01] MEDS: KETOROLAC TROMETHAMINE 30 MG/ML (IVP) VIAL IV PUSH PRN (22:11)
[2017-08-01] MEDS: CHLORHEXIDINE GLUCONATE 0.12% 15 ML CUP SWISH-SPIT SCH (22:30)
[2017-08-02] VITALS: BP 100/67; PULSE 70; RESP 18; TEMP 98.1; O2SAT 97
[2017-08-02 04:00] VITALS: BP 91/54; PULSE 79; RESP 18; TEMP 97.9; O2SAT 99
[2017-08-02] MEDS: CLINDAMYCIN 600 MG/NS PREMIX 50 ML IV SCH ×4 (04:00→20:23)
[2017-08-02 04:52] LABS: AUTOMATED NEUTROPHIL # 16.9 TH/MM3 (1.8-7.7); BASOPHIL % 0.2 % (0.0-2.0); HEMATOCRIT 39.6 % (35.0-46.0); HEMOGLOBIN 13.1 GM/DL (11.6-15.3); LYMPH % 6.3 % (9.0-44.0); LYMPHOCYTE # 1.2 TH/MM3 (1.0-4.8); MEAN CELL VOLUME 94.3 FL (80.0-100.0); MEAN CORPUSCULAR HEMOGLOBIN 31.2 PG (27.0-34.0); MEAN CORPUSCULAR HGB CONC 33.1 % (32.0-36.0); MEAN PLATELET VOLUME 9.6 FL (7.0-11.0); MONO % 3.1 % (0.0-8.0); MONOCYTE # 0.6 TH/MM3 (0-0.9); NEUT % 90.4 % (16.0-70.0); PLATELET COUNT 168 TH/MM3 (150-450); RED CELL DISTRIBUTION WIDTH 13.9 % (11.6-17.2); WHITE BLOOD COUNT 18.7 TH/MM3 (4.0-11.0)
[2017-08-02 05:06] LABS: ALBUMIN 3.3 GM/DL (3.4-5.0); ALKALINE PHOSPHATASE 71 U/L (45-117); ALT (GPT) 13 U/L (10-53); AST (GOT) 11 U/L (15-37); BICARBONATE 26.8 MEQ/L (21.0-32.0); BLOOD UREA NITROGEN 12 MG/DL (7-18); CALCIUM 8.5 MG/DL (8.5-10.1); CHLORIDE 110 MEQ/L (98-107); GLOMERULAR FILTRATION RATE 117 ML/MIN (>89); GLUCOSE,RANDOM 117 MG/DL (74-106); SODIUM (NA) 143 MEQ/L (136-145); TOTAL BILIRUBIN ADULT 0.7 MG/DL (0.2-1.0); TOTAL PROTEIN 7.3 GM/DL (6.4-8.2)
[2017-08-02 07:47] VITALS: BP 99/55; PULSE 70; RESP 18; TEMP 97.9; O2SAT 99
[2017-08-02] MEDS: DOCUSATE SODIUM 50 MG/SENNA 8.6 MG TAB PO SCH ×2 (08:28→20:22)
[2017-08-02] MEDS: NICOTINE 21 MG/24 HR PATCH T-DERMAL SCH (08:41)
[2017-08-02] MEDS: DEXAMETHASONE SOD PHOS 4 MG/ML VIAL IV PUSH SCH ×3 (08:43→23:31)
[2017-08-02] MEDS: REMOVE OLD PATCH T-DERMAL SCH (08:45)
[2017-08-02] MEDS: SODIUM CHLORIDE 0.9% FLUSH 10 ML FLUSH IV FLUSH SCH ×2 (08:45→20:23)
[2017-08-02] MEDS: CHLORHEXIDINE GLUCONATE 0.12% 15 ML CUP SWISH-SPIT SCH ×2 (08:46→20:22)
[2017-08-02] MEDS: LACTOBACILLUS ACIDOPHILUS TAB PO SCH ×2 (10:00→20:22)
[2017-08-02 12:00] VITALS: BP 105/67; PULSE 92; RESP 19; TEMP 97.9; O2SAT 96
[2017-08-02] MEDS: SODIUM CHLOR 0.9% 1000 ML INJ 1,000 ML IV SCH ×2 (13:42→20:23)
--- NOTE | 2017-08-02 15:05 | HHI.PR ---
Subjective Remarks Follow-up sepsis/left tonsil abscess 08/02/17-patient seen and examined, reports improvement of throat pain and swelling and states she's having increase production of sputum. Currently afebrile Objective Vitals Vital Signs Date Time Temp Pulse Resp B/P (MAP) Pulse Ox O2 Delivery O2 Flow Rate FiO2 08/02/17 12:00 97.9 92 19 105/67 (80) 96 08/02/17 09:42 20 08/02/17 07:47 97.9 70 18 99/55 (70) 99 08/02/17 04:00 97.9 79 18 91/54 (66) 99 08/02/17 00:00 98.1 70 18 100/67 (78) 97 08/01/17 20:00 97.9 75 18 108/68 (81) 98 08/01/17 18:00 98.1 83 18 116/64 (81) 98 I/O 08/01/17 08/01/17 08/01/17 08/02/17 08/02/17 08/02/17 07:00 15:00 23:00 07:00 15:00 23:00 Intake Total 1164 ml Output Total 400 ml Balance 764 ml Intake Oral 500 ml IV Total 664 ml Output Urine Total 400 ml # Bowel Movements 0 Result Diagram: 08/02/17 0426 08/02/17 0426 Imaging Last Impressions Neck CT 08/01/17 0000 Signed Impressions: Service Date/Time: Tuesday, August 01, 2017 07:42 - CONCLUSION: Left tonsillar rim-enhancing mass with low density consistent with abscess in the proper clinical setting. There are additional similar but smaller submucosal masses more inferiorly at the level of the vallecula and piriform sinus. No retropharyngeal abscess demonstrated. There is left cervical lymphadenopathy, presumably reactive. Ronald Dickey MD Objective Remarks GENERAL: NAD SKIN: Warm and dry. HEAD: Normocephalic. EYES: No scleral icterus. No injection or drainage. NECK: Supple, trachea midline. +lymphadenopathy. CARDIOVASCULAR: Regular rate and rhythm with II/ [place] RESPIRATORY: Breath sounds equal bilaterally. No accessory muscle use. GASTROINTESTINAL: Abdomen soft, non-tender, nondistended. MUSCULOSKELETAL: No cyanosis, or edema. BACK: Nontender without obvious deformity. No CVA tenderness. A/P Problem List: (1) Sepsis ICD Code: A41.9 - Sepsis, unspecified organism (2) Tonsillar abscess ICD Code: J36 - Peritonsillar abscess Status: Acute Assessment and Plan 32-year-old female with Sepsis: Resolved and Continue with Clindamycin IV every 6 hours Left Tonsillar abscess Neck CT finding of left tonsil ring-enhancing mass with low density consistent with abscess. No retropharyngeal abscess demonstrated. Currently on clindamycin 600 mg IV every 6 hours Continue with Decadron IV 4 mg daily every 8 hour and Peridex Pain management accordingly ENT consultation pending for evaluation for possible I&D Leukocytosis From above infectious process, monitor and treat as in above Patient is currently on Decadron Heart murmur in a patient with previous history of IVDU 2-D echo pending in light of current diagnosis of sepsis and tonsillar abscess UDS pending Tobacco abuse Tobacco counseling cessation provided On nicotine patch Hypokalemia Resolved DVT prophylaxis: Bilateral SCDs Ben Montes MD Aug 02, 2017 15:05
[2017-08-02] MEDS: KETOROLAC TROMETHAMINE 30 MG/ML (IVP) VIAL IV PUSH PRN (15:27)
[2017-08-02 16:00] VITALS: BP 121/58; PULSE 101; RESP 19; TEMP 98.2; O2SAT 97
[2017-08-02 20:00] VITALS: BP 109/75; PULSE 81; RESP 18; TEMP 97.4; O2SAT 97
[2017-08-03] VITALS: BP 112/70; PULSE 49; RESP 18; TEMP 97.4; O2SAT 97
[2017-08-03] MEDS: SODIUM CHLOR 0.9% 1000 ML INJ 1,000 ML IV SCH (04:00)
[2017-08-03] MEDS: CLINDAMYCIN 600 MG/NS PREMIX 50 ML IV SCH ×2 (04:29→09:28)
[2017-08-03 06:05] LABS: AUTOMATED NEUTROPHIL # 12.7 TH/MM3 (1.8-7.7); BASOPHIL % 0.1 % (0.0-2.0); HEMATOCRIT 37.4 % (35.0-46.0); HEMOGLOBIN 12.7 GM/DL (11.6-15.3); LYMPHOCYTE # 1.5 TH/MM3 (1.0-4.8); MEAN CELL VOLUME 94.4 FL (80.0-100.0); MEAN CORPUSCULAR HGB CONC 33.9 % (32.0-36.0); MEAN PLATELET VOLUME 9.8 FL (7.0-11.0); MONO % 4.1 % (0.0-8.0); MONOCYTE # 0.6 TH/MM3 (0-0.9); NEUT % 85.8 % (16.0-70.0); PLATELET COUNT 196 TH/MM3 (150-450); RED BLOOD COUNT 3.96 MIL/MM3 (4.00-5.30); RED CELL DISTRIBUTION WIDTH 13.6 % (11.6-17.2); WHITE BLOOD COUNT 14.8 TH/MM3 (4.0-11.0)
[2017-08-03 06:28] LABS: BICARBONATE 26.2 MEQ/L (21.0-32.0); CALCIUM 8.1 MG/DL (8.5-10.1); CREATININE 0.65 MG/DL (0.50-1.00)
[2017-08-03 08:00] VITALS: BP 103/67; PULSE 50; RESP 17; TEMP 97.2; O2SAT 99
[2017-08-03] MEDS: LACTOBACILLUS ACIDOPHILUS TAB PO SCH (09:28)
[2017-08-03] MEDS: DEXAMETHASONE SOD PHOS 4 MG/ML VIAL IV PUSH SCH (09:28)
[2017-08-03] MEDS: SODIUM CHLORIDE 0.9% FLUSH 10 ML FLUSH IV FLUSH SCH (09:29)
[2017-08-03] MEDS: CHLORHEXIDINE GLUCONATE 0.12% 15 ML CUP SWISH-SPIT SCH (09:30)
[2017-08-03] MEDS: REMOVE OLD PATCH T-DERMAL SCH (09:30)
[2017-08-03] MEDS: NICOTINE 21 MG/24 HR PATCH T-DERMAL SCH (09:30)
[2017-08-03] MEDS: DOCUSATE SODIUM 50 MG/SENNA 8.6 MG TAB PO SCH (09:30)
[2017-08-03] MEDS ORDERED: IBUP1TAB7 PO (11:15)
[2017-08-03] MEDS ORDERED: CLIN300C5 PO (11:15)
[2017-08-03] MEDS ORDERED: MEDR4PAK PO (11:15)
--- NOTE | 2017-08-03 11:15 | HHI.DCPOC ---
Discharge Care Plan Diagnosis: (1) Tonsillar abscess Goals to Promote Your Health * To prevent worsening of your condition and complications * To maintain your health at the optimal level Directions to Meet Your Goals Take your medications as prescribed Follow your dietary instruction Follow activity as directed Keep your appointments as scheduled Take your immunizations and boosters as scheduled If your symptoms worsen call your PCP, if no PCP go to Urgent Care Center or Emergency Room Smoking is Dangerous to Your Health. Avoid second hand smoke Call the 24-hour hour crisis hotline for domestic abuse at Kiko Ballard MD Aug 03, 2017 11:15
--- NOTE | 2017-08-03 11:18 | HHI.DS ---
Discharge Summary Admission Date Aug 01, 2017 at 09:06 Discharge Date: Aug 03, 2017 Admitting Diagnosis multiple tonsilar/neck abscesses (1) Sepsis ICD Code: A41.9 - Sepsis, unspecified organism (2) Tonsillar abscess ICD Code: J36 - Peritonsillar abscess Status: Acute Procedures None Brief History - From Admission 32-year-old female with past medical history of anxiety, depression, schizophrenia and a former history of IV drug use presented to the ED for evaluation of sore throat and pain along with swollen throat associated with left ear pain over the past 3 days. Pain is rated 8/10 in intensity. Patient also reported subjective fever. she also endorsed decreased appetite. She complains of trismus and she states despite Chloraseptic spray as well as DayQuil has no improvement of her pain. Patient also reported emesis and dysphagia of both liquid and solid along with odynophagia. Admission, patient was afebrile with a heart rate of 100. Neck CT scan with finding of left tonsil ring-enhancing mass with low density consistent with abscess however no retropharyngeal abscess identified. Abnormal labs include WBC of 20.1. She denies any GI bleed, shortness of breath or chest pain. CBC/BMP: 08/03/17 0445 08/03/17 0445 Significant Findings Laboratory Tests Test 08/01/17 07:37 08/02/17 04:26 08/02/17 14:20 08/03/17 04:45 White Blood Count 20.1 TH/MM3 (4.0-11.0) 18.7 TH/MM3 (4.0-11.0) 14.8 TH/MM3 (4.0-11.0) Neutrophils (%) (Auto) 86.7 % (16.0-70.0) 90.4 % (16.0-70.0) 85.8 % (16.0-70.0) Lymphocytes (%) (Auto) 7.4 % (9.0-44.0) 6.3 % (9.0-44.0) Neutrophils # (Auto) 17.4 TH/MM3 (1.8-7.7) 16.9 TH/MM3 (1.8-7.7) 12.7 TH/MM3 (1.8-7.7) Monocytes # (Auto) 1.1 TH/MM3 (0-0.9) Aspartate Amino Transf (AST/SGOT) 14 U/L (15-37) 11 U/L (15-37) Total Bilirubin 1.1 MG/DL (0.2-1.0) Potassium Level 3.4 MEQ/L (3.5-5.1) Random Glucose 117 MG/DL (74-106) Albumin 3.3 GM/DL (3.4-5.0) Chloride Level 110 MEQ/L (98-107) 111 MEQ/L (98-107) Red Blood Count 3.96 MIL/MM3 (4.00-5.30) Calcium Level 8.1 MG/DL (8.5-10.1) Imaging Last Impressions Neck CT 08/01/17 0000 Signed Impressions: Service Date/Time: Tuesday, August 01, 2017 07:42 - CONCLUSION: Left tonsillar rim-enhancing mass with low density consistent with abscess in the proper clinical setting. There are additional similar but smaller submucosal masses more inferiorly at the level of the vallecula and piriform sinus. No retropharyngeal abscess demonstrated. There is left cervical lymphadenopathy, presumably reactive. Ronald Dickey MD PE at Discharge GENERAL: This is a well-nourished, well-developed patient, in no apparent distress. CARDIOVASCULAR: Regular rate and rhythm without murmurs, gallops, or rubs. RESPIRATORY: Clear to auscultation. Breath sounds equal bilaterally. No wheezes , rales, or rhonchi. GASTROINTESTINAL: Abdomen soft, non-tender, nondistended. Normal active bowel sounds MUSCULOSKELETAL: Extremities without clubbing, cyanosis, or edema. NEURO: Alert & Oriented x4 to person, place, time, situation. Moves all ext x4 Pt update on day of discharge Patient reports she is feeling much better. Throat pain much improved. She wants to go home. Reports that she only used IV drugs one time over 3 years ago. She does not want to stay for echocardiogram. Hospital Course 32-year-old female admitted with tonsillar abscess. Patient treated with IV steroids and antibiotics with marked improvement. She was evaluated by ENT who recommended outpatient follow up to consider tonsillectomy in about 6 weeks.Patient's symptoms improved remarkably. She is discharged on oral antibiotics and steroid taper. Heart murmur identified on admission but that resolved. No murmur on my exam. OK to cancel echo. She is asymptomatic. DC home Pt Condition on Discharge: Good Discharge Disposition: Discharge Home Discharge Time: <= 30 minutes Discharge Instructions DIET: Follow Instructions for: As Tolerated, No Restrictions Activities you can perform: Regular-No Restrictions Follow up Referrals: Appointment for Follow Up New Medications: Clindamycin (Clindamycin) 300 Mg Cap 300 MG PO TID for Infection, #21 CAP 0 Refills Ibuprofen (Ibuprofen) 800 Mg Tab 800 MG PO Q6HR PRN for PAIN, #15 TAB 0 Refills Methylprednisolone Dosepak (Medrol Dosepak) 4 Mg Dspk 4 MG PO DIRECTED, #1 DSPK 0 Refills Per Pharmacist direction Kiko Ballard MD Aug 03, 2017 11:18
[2017-08-03 12:00] VITALS: BP 136/79; PULSE 82; RESP 19; TEMP 97.8; O2SAT 98
== END 2017-08-03 14:00 | disposition home or self-care (01) | DRG 872 ==
LOC: NEPE 06:02 → NEDA 09:06 → NEDH 19:18 → N07B 08-02 11:31
PROVIDERS: ADMIT Family Medicine; ATTEND Family Medicine
DX: A41.9 Sepsis, unspecified organism (principal); F20.9 Schizophrenia, unspecified; J36 Peritonsillar abscess; I89.1 Lymphangitis; F32.9 Major depressive disorder, single episode, unspecified; F41.9 Anxiety disorder, unspecified; E87.6 Hypokalemia; Z72.0 Tobacco use
CPT/HCPCS: 70491; 80048; 80053; 80307; 83605; 85025; 96361; 96374; 96375; J1100; J1885; J2405; J7030; Q9967